=== PATIENT | female | born 1995 | race African-American/Black ===

== ENCOUNTER 2020-01-06 16:27 | Emergency (ER) | payer MEDICAID ==
[~2020-01-06] VITALS: Ht 154.9 cm; Wt 75.3 kg
[2020-01-06 16:45] VITALS: Ht 154.9 cm; Wt 75.3 kg
[2020-01-06 18:16] LABS: microscopic required? YES; urine erythrocyte TRACE (NEGATIVE)
[2020-01-06 19:58] VITALS: BP 135/86
== END 2020-01-06 19:58 | disposition home or self-care (01) ==
LOC: ED 16:27
PROVIDERS: Emergency Medicine
DX: N39.0 Urinary tract infection, site not specified (principal); J45.909 Unspecified asthma, uncomplicated; R11.0 Nausea; R63.0 Anorexia